=== PATIENT | male | born 1960 | race Caucasian/White ===

== ENCOUNTER 2016-11-24 08:06 | Day surgery (SDC) | payer OTHER ==
[~2016-11-24] VITALS: Ht 180.3 cm; Wt 142.9 kg
[~2016-11-24 08:06] MED LIST: Sodium Chloride LOK Flush 10 mL Syringe IV PRN; fentaNYL-PF 50 mCg/mL 2 mL Inj IVPUSH PRN
[2016-11-24 08:31] VITALS: BP 142/84; PULSE 95; RESP 14; O2SAT 97
[2016-11-24] MEDS: 0.9% Sodium Chloride 1,000 ML IV SCH ×3 (09:00→10:30)
[2016-11-24 09:55] VITALS: BP 142/97; PULSE 77; RESP 16; O2SAT 94
[2016-11-24 10:04] VITALS: BP 116/16; PULSE 82; RESP 16; O2SAT 95
[2016-11-24 10:16] VITALS: BP 115/58; PULSE 77; RESP 16; O2SAT 97
--- NOTE | 2016-11-24 10:34 | ENDO ---
[address] [address] ENDOSCOPY PROCEDURE PATIENT: STEPHON DERAS : 1960 MR#: [id number] ADMIT: 11/24/2016 JOB ID: [id number] DATE OF SERVICE: 11/24/2016 PROCEDURE PERFORMED: Colonoscopy. INDICATIONS: Screening. ASA CLASSIFICATION: The patient's ASA classification is II. MALLAMPATI SCORE: Mallampati score was 2. MEDICATIONS: 1. Versed 8 mg. 2. Fentanyl 125 mcg. INSTRUMENT USED: PCF-H190 and CSF-H180AL. PREPARATION QUALITY: Fair. PROCEDURE DETAILS: After informed consent was obtained, the patient was brought into the GI suite, where he was placed on oxygen via nasal cannula and monitored with continuous pulse oximeter, telemetry, and blood pressure monitoring. A time-out was performed. Then, he was placed in the left lateral decubitus position and medications were administered for sedation. Digital rectal exam was performed which was limited secondary to the patient's body habitus. I was not able to palpate the prostate. The colonoscope was then inserted into the rectum and advanced under direct visualization to the distal ascending colon. Beyond this point, I was unable to advance despite multiple position changes, as well as the application of abdominal pressure. Also, we attempted with an adult colonoscope and were still unsuccessful on advancing beyond the ascending colon. Once we were not able to advance the colonoscope any further, the colonoscope was then withdrawn as the mucosa and lumen were examined into the rectum. In the rectum, retroflexion was performed. Following retroflexion, remaining air in the rectum was suctioned, and procedure was completed. FINDINGS: 1. Redundant colon. 2. Incomplete colonoscopy. 3. 6-7mm sigmoid colon polyp that was removed with a hot snare. IMPRESSION: 1. Incomplete colonoscopy. 2. Sigmoid polyp. RECOMMENDATIONS: 1. Air-contrast barium enema to evaluate the remainder of the ascending colon and cecum that were not visualized on colonoscopy today. 2. Avoid NSAIDs and anticoagulants for 72 hours. 3. Repeat colonoscopy pending barium study and polyp pathology results. COMPLICATIONS: None. ESTIMATED BLOOD LOSS: Zero. MTDD
--- NOTE | 2016-11-27 16:36 | PATH ---
SURGICAL PATHOLOGY Attending Physician:Vivi Stacy CASE STATUS: Signed Out PATIENT NAME: STEPHON DERAS PID: [id number] : 1960 DATE COLLECTED:11/24/2016 17:51 SPECIMEN: Colon, Biopsy CLINICAL HISTORY: SIGMOID COLON POLYP FINAL DIAGNOSIS: SIGMOID COLON POLYP: TUBULAR ADENOMA, MULTIPLE FRAGMENTS. ICD10 CODE D12.5 GROSS DESCRIPTION: The specimen is received in one formalin filled container labeled with the patient's name, sublabeled "sigmoid colon polyp" and consists of 3 portions of tissue which aggregate to 0.6 0.6 x 0.6 CM. The specimen is entirely submitted in one cassette. 11/24/2016 [facility] MICRO DESCRIPTION: See diagnosis. ICD-9 CODES: CPT CODES: 1: 68964 Electronically Signed Out Winsome Bailey MD [facility] Pathology [facility] [address], [place] [address] Technical component performed at [facility], [address] [place] [address] Ave[address], [place], [address]
== END 2016-11-24 23:59 | disposition home or self-care (01) ==
LOC: END 08:06
PROVIDERS: ATTEND Internal Medicine Gastroenterology
DX: Z12.11 Encounter for screening for malignant neoplasm of colon (principal); D12.5 Benign neoplasm of sigmoid colon; I10 Essential (primary) hypertension; E78.2 Mixed hyperlipidemia
CPT/HCPCS: 45385; 99153; G0500; J2250; J3010; J7030